=== PATIENT | female | born 1960 | race Two or more races ===

== ENCOUNTER 2017-12-16 12:52 | Outpatient (CLI) | payer OTHER | END 2017-12-16 12:53 | LOC: CARD 12:52 | PROVIDERS: ATTEND Internal Medicine Cardiovascular Disease | DX: R00.2 Palpitations (principal); R00.1 Bradycardia, unspecified; R01.1 Cardiac murmur, unspecified; I10 Essential (primary) hypertension | CPT/HCPCS: G0463 ==

== ENCOUNTER 2018-01-06 10:04 | Outpatient (CLI) | payer OTHER | END 2018-01-06 10:06 | LOC: CARD 10:04 | PROVIDERS: ATTEND Internal Medicine Cardiovascular Disease | DX: R00.2 Palpitations (principal); R00.1 Bradycardia, unspecified; I35.1 Nonrheumatic aortic (valve) insufficiency; I10 Essential (primary) hypertension | CPT/HCPCS: 99213 ==